=== PATIENT | female | born 1995 | race Caucasian/White ===

== ENCOUNTER 2020-10-23 21:30 | Emergency (ER) | payer OTHER, SELFPAY ==
--- NOTE | ~2020-10-23 | CT_ITS ---
EXAMINATION: CT abdomen pelvis w con EXAM DATE: 10/24/2020 00:12 INDICATION: Pelvic pain. TECHNIQUE: Spiral CT of the abdomen and pelvis was performed following intravenous injection of 100 m L Omnipaque 350. Axial, coronal and sagittal images were reviewed. The dose-length product (DLP) fo r this examination was 370.63 mGy-cm. The exposure was tailored according to patient size (auto mA e xposure control), and iterative reconstruction (ASIR) was used as additional dose reduction technique . There is no prior study for comparison. FINDINGS: The liver, spleen, adrenal glands and pancreas are unremarkable. Gallbladder is unremarkab le. No biliary obstruction. Portal and splenic veins are patent. Kidneys enhance symmetrically. T here is no hydronephrosis. The uterus is retroverted and morphologically normal. Ovaries are unrema rkable. The bladder is collapsed with Diaz catheter balloon anchor inside. There is no retroperiton eal or pelvic lymphadenopathy. The appendix is normal. The stomach and small bowel are unremarkable. There is expected amount of c olonic stool. No free intraperitoneal gas. The heart is normal in size. There are no pericardial or pleural effusions. The lung bases are unremarkable. Chronic right-sided L5 spondylolysis. No sp ondylolisthesis. There are no osteoblastic or osteolytic lesions identified. IMPRESSION: 1. No acute intra-abdominal findings. Reviewed, dictated and finalized at location B. [employer]ODUCTION ASSOCIATE
[2020-10-23 21:34] VITALS: BP 149/96; PULSE 119; RESP 18; TEMP 38.6; O2SAT 97
--- NOTE | 2020-10-23 22:19 | ED.GENADULT ---
HPI - General Adult General Chief complaint: Urogenital-Female <Dianne Cheek MD - Last Filed: 10/24/20 15:34> Stated complaint: urinary incontinence <Dianne Cheek MD - Last Filed: 10/24/20 15:34> Time Seen by Provider: 10/23/20 21:48 <Dianne Cheek MD - Last Filed: 10/24/20 15:34> Source: patient <Dianne Cheek MD - Last Filed: 10/24/20 15:34> History of Present Illness HPI narrative: Patient is a 24 y/o female complaining vaginal discomfort starting 2 days ago. She states that she used OTC Monistat, which did not help. She had a visit with [facility] yesterday and was prescribed Macrobid for possible UTI. She went to [place] urgent care today and was told she has vaginal redness, but probably not UTI. However, she was not able to urinate to have her urine tested. She states she now has difficulty with urination, pelvic pressure. It's been over 24 hours since she was last able to empty her bladder fully. <Dianne Cheek MD - Last Filed: 10/24/20 15:34> Related Data Home medications: Home Medications Medication Instructions Recorded Confirmed citalopram mg 10/23/20 <Dianne Cheek MD - Last Filed: 10/24/20 15:34> Allergies/adverse reactions: Allergies Allergy/AdvReac Type Severity Reaction Status Date / Time latex Allergy Mild Verified 07/03/19 14:53 nickel Allergy Mild rash Verified 07/03/19 14:53 <Dianne Cheek MD - Last Filed: 10/24/20 15:34> Review of Systems Constitutional: Constitutional: Denies chills, Denies fever(s), Denies headache(s) and Denies weakness <Dianne Cheek MD - Last Filed: 10/24/20 15:34> Eyes: Eyes: Denies blurry vision <Dianne Cheek MD - Last Filed: 10/24/20 15:34> ENT: Denies headache(s) and Denies neck pain <Dianne Cheek MD - Last Filed: 10/24/20 15:34> Cardiovascular: Cardiovascular: Denies chest pain and Denies dyspnea <Dianne Cheek MD - Last Filed: 10/24/20 15:34> Respiratory: Respiratory: Denies cough and Denies dyspnea <Dianne Cheek MD - Last Filed: 10/24/20 15:34> Gastrointestinal: Gastrointestinal: Denies abdominal pain, Denies diarrhea, Denies nausea and Denies vomiting <Dianne Cheek MD - Last Filed: 10/24/20 15:34> Genitourinary: Genitourinary: Denies hematuria, Reports genital pruritis, Reports dysuria and Reports pelvic pain <Dianne Cheek MD - Last Filed: 10/24/20 15:34> Musculoskeletal: Musculoskeletal: Denies back pain and Denies neck pain <Dianne Cheek MD - Last Filed: 10/24/20 15:34> Neurologic: Denies headache(s) and Denies weakness <Dianne Cheek MD - Last Filed: 10/24/20 15:34> Exam Const: General: no acute distress and well developed <Dianne Cheek MD - Last Filed: 10/24/20 15:34> Orientation/consciousness: oriented to person, oriented to place, oriented to time and patient oriented x3 <Dianne Cheek MD - Last Filed: 10/24/20 15:34> HENMT: Head: normocephalic <Dianne Cheek MD - Last Filed: 10/24/20 15:34> Ears: external ears normal <Dianne Cheek MD - Last Filed: 10/24/20 15:34> General nose exam: Normal external nose present <Dianne Cheek MD - Last Filed: 10/24/20 15:34> Eyes: General: appearance normal, both eyes and all related structures <Dianne Cheek MD - Last Filed: 10/24/20 15:34> Conjunctivae: conjunctivae normal <Dianne Cheek MD - Last Filed: 10/24/20 15:34> Neck: Neck: normal visual inspection and full ROM <Dianne Cheek MD - Last Filed: 10/24/20 15:34> Chest: Chest palpation & inspection: normal inspection of the chest and no tenderness <Dianne Cheek MD - Last Filed: 10/24/20 15:34> Resp: Effort & Inspection: normal respiratory effort <Dianne Cheek MD - Last Filed: 10/24/20 15:34> Auscultation: clear to auscultation bilaterally <Dianne Cheek MD - Last Filed: 10/24/20 15:34> Cardio: Rate: tachycardic <Dianne Cheek MD - Last Filed: 10/24/20 15:34> Rhythm: regular rhythm <Dianne Cheek MD - Last Filed: 10/24/20 15:34> GI: GI Palp: No a
[2020-10-23 22:33] LABS: Basophils Percent Auto 0.4 % (0.2-1.2); Eosinophils Percent Auto 0.2 % (0-4.4); Hematocrit 40.5 % (37.0-47.0); Hemoglobin 13.5 g/dL (12.0-15.0); Immature Granulocyte Absolute 0.01 K/mm3 (0.00-0.031); Immature Granulocyte Percent A 0.2 % (0-0.5); Lymphocytes Absolute Auto 1.02 K/mm3 (0.9-3.2); Lymphocytes Percent Auto 19.6 % (18.3-44.2); Mean Corpuscular HGB Conc 33.3 g/dl (32-36); Mean Corpuscular Hemoglobin 28.4 pg (26-34); Mean Corpuscular Volume 85.3 fl (80-100); Mean Platelet Volume 10.6 fl (7.4-10.4); Monocytes Absolute Auto 0.5 K/mm3 (0.1-0.6); Neutrophils Absolute Auto 3.7 K/mm3 (1.3-6.7); Neutrophils Percent Auto 70.6 % (45.5-73.1); Platelet Count Result 268 k/mm3 (150-375); Red Blood Count 4.75 M/mm3 (4.2-5.4); Red Cell Distribution Width 12.6 % (11.5-14.5); White Blood Count 5.2 K/mm3 (4.5-10.0)
[2020-10-23] MEDS: ACETAMINOPHEN 325 MG TABLET 650 MG PO (22:39)
[2020-10-23 22:41] VITALS: BP 116/86; PULSE 119; RESP 16; O2SAT 98
[2020-10-23 22:44] LABS: Alanine Aminotransferase 19 U/L (4-35); Albumin Level 4.1 g/dL (3.5-5.1); Alkaline Phosphatase 92 U/L (38-126); Anion Gap 9 mmol/L (8-16); Aspartate Amino Transferase 21 U/L (14-36); Bilirubin,Total 0.4 mg/dL (0.2-1.3); Blood Urea Nitrogen 9 mg/dL (7-17); Calcium 9.1 mg/dL (8.4-10.2); Carbon Dioxide 26 mmol/L (22-30); Chloride 104 mmol/L (98-107); Estimated CRCL calculation 134 ml/min; Estimated Glomerular Filt Rate > 60; Glucose 112 mg/dL (65-105); Potassium 3.2 mmol/L (3.4-5.0); Sodium 139 mmol/L (137-145)
[2020-10-23 22:45] LABS: Lactic Acid Reflex 0.9 mmol/L (0.7-2.1)
[2020-10-23 22:48] LABS: Add Urine Microscopic? YES; Appearance Urine Clear (Clear); Bilirubin Urine Negative (Negative); Blood Urine Negative (Negative); Color Urine Amber (Yellow); Glucose Urine UA Negative (Negative); Ketones Urine Trace mg/dL (Negative); Leukocyte Esterase Ur Negative LEU/UL (Negative); Mucus Urine Rare /lpf; Nitrate Urine Positive (Negative); Protein Urine 1+ mg/dL (Negative); Specific Grav Ur 1.026 (1.001-1.035); Squamous Epithelial Cell Urine Rare /hpf (Few); WBC Urine 0-3 /hpf
[2020-10-23] MEDS: POTASSIUM CHLORIDE 20 MEQ TABLET PO (23:08)
[2020-10-23 23:38] VITALS: BP 117/79; PULSE 101; RESP 16; O2SAT 97
[2020-10-24 00:47] VITALS: BP 108/71; PULSE 96; RESP 16; O2SAT 96
[2020-10-24] MEDS: CITALOPRAM HYDROBROMIDE 20 MG TABLET 40 MG BY MOUTH (00:48)
[2020-10-24 01:58] VITALS: BP 108/75; PULSE 86; RESP 16; O2SAT 96
== END 2020-10-24 02:14 | disposition home or self-care (01) ==
PROVIDERS: Emergency Provider Emergency Medicine
DX: R33.9 Retention of urine, unspecified (principal)
CPT/HCPCS: 36415; 74177; 80053; 81001; 81025; 83605; 85025; 87040; 99284; A9270; Q9967

== ENCOUNTER 2021-11-02 16:17 | Inpatient (IN) | payer OTHER, BC, SELFPAY ==
[2021-11-02] VITALS (47 sets, daily range): BP systolic 91–110; BP diastolic 53–68; PULSE 44–85; RESP 18–20; TEMP 36.5–36.7; O2SAT 97–100; BMI 34.4
--- NOTE | ~2021-11-02 | US_ITS ---
EXAMINATION: US OB BPP wo non-stress DATE: 11/02/2021 17:30 INDICATION: Biophysical profile score of 4/8 in the office, third trimester TECHNIQUE: Real-time pelvic ultrasound was performed. The interpreting radiologist was not present fo r the study. COMPARISON: None. FINDINGS: There is a single living fetus in vertex presentation. The placenta is posterior. heart rate is 152 beats per minute (bpm). Biophysical profile performed by the technologist: breathing (30 sec sustained breathing in 30 minutes): 0 out of 2 movement (3 gross body movements in 30 minutes): 2 out of 2 tone (one episode of ylxbzrc-[id number]-crvizjl limb movement): 2 out of 2 Amniotic fluid pocket (2 cm): 2 out of 2 Total score: 6 out of 8 IMPRESSION: 1. Single living fetus in vertex presentation. 2. Biophysical profile 6 out of 8. Reviewed, dictated and finalized at location F. [employer] BL[employer]
[2021-11-02] MEDS: LACTATED RINGERS 1,000 ML 125 ML IV CONT ×3 (17:30→19:00)
--- NOTE | 2021-11-02 17:50 | LDADM ---
This patient, Quita Parra, was admitted to OB [facility] on 11/02/21 at 1617 for testing and decision made to perform urgent C/S. Plans for surgery/ and pain management were discussed with patient. Patient/family oriented to hospital policies and general routines including ID bracelet, bed and alarms, visiting hours, pain management, procedures, bathroom and other care routines, personal items, smoking policy, room service/diet and guest tray routines, infant security routines, and visiting hours. Patient/Family are encouraged to report perceived risks to care and to ask questions if they do not understand what they are told or what they should do. See OBIX for further documentation.
--- NOTE | 2021-11-02 17:50 | PM.IMHP ---
H&P: HPI History of Present Illness Date/Time: 11/02/21 17:50 25 y/o @ 34w3d send over from the office for a bpp of 48 with significantly decreased movement. Chief Complaint: Non reassuring status Review of Systems Review of Systems: All systems reviewed & are unremarkable except as noted in HPI and below Constitutional: Constitutional: Reports as per HPI and Reports no additional constitutional complaints Eyes: Eyes: Reports as per HPI ENT: Reports system reviewed and no additional complaints, except as documented Cardiovascular: Cardiovascular: Reports as per HPI Respiratory: Respiratory: Reports as per HPI Gastrointestinal: Gastrointestinal: Reports as per HPI Genitourinary: Genitourinary: Reports no additional female genitourinary complaints Musculoskeletal: Musculoskeletal: Reports no additional musculoskeletal complaints Integumentary/Breasts: Skin/Breast: Reports system reviewed and no additional complaints, except as docu Neurologic: Reports system reviewed and no additional complaints, except as documented Psychiatric: Psychiatric: Reports no additional psychiatric complaints Endocrine: Endocrine: Reports no additional endocrine complaints Hematologic/Lymphatic: Hematologic/Lymphatic: Reports no additional hematologic/lymphatic complaints Allergic/Immunologic: Allergic/Immunologic: Reports no additional allergic/immunologic complaints Meds Home Medications and Allergies Home Medications Medication Instructions Recorded Confirmed Type citalopram mg 10/23/20 History Allergies Allergy/AdvReac Type Severity Reaction Status Date / Time latex Allergy Mild Verified 07/03/19 14:53 nickel Allergy Mild rash Verified 07/03/19 14:53 Exam Const: General: cooperative and healthy appearing Orientation/consciousness: oriented to person, oriented to place, oriented to time and patient oriented x3 Limitations: no limitations HENMT: Head: normal to inspection Ears: hearing grossly normal bilaterally General nose exam: Normal external nose present Face and sinus: normal facial exam Mouth: Yes Normal oral and palatal mucosa present Teeth and gingiva: dentition normal Throat: posterior oropharynx normal Eyes: General: appearance normal, both eyes and all related structures Neck: Neck: normal visual inspection Thyroid: thyroid normal Chest: Chest palpation & inspection: normal inspection of the chest Resp: Effort & Inspection: normal respiratory effort Auscultation: clear to auscultation bilaterally Cardio: Rate: regular rate Rhythm: regular rhythm GI: Inspection: normal to inspection : General: Yes bimanual renal exam normal bilaterally Skin: General skin exam: normal color and no rashes or lesions noted Neuro: General: oriented to person, oriented to place, oriented to time and patient oriented x3 Extrem: General: normal to inspection Psych: Mental Status: mental status grossly normal Assessment and Plan Assessment and plan (1) Non-reassuring status: Status: Acute Additional Plan Bedside BPP and NST. Dr Lezama aware and agrees with plan.
--- NOTE | 2021-11-02 18:11 | WPDANESEPPF ---
Anes - Initial Pre Proc Eval Date/Time: 11/02/21 18:11 Surgeon: Pacheco Desir MD Pre Op Diagnosis: surveillance Patient Data Age: 25 Gender: F Height: Weight: Last Vital Signs Pulse 85 11/02/21 18:10 BP 110/61 11/02/21 18:10 Allergies Allergy/AdvReac Type Severity Reaction Status Date / Time latex Allergy Mild Verified 07/03/19 14:53 nickel Allergy Mild rash Verified 07/03/19 14:53 Home Medications Medication Instructions Recorded Confirmed Type PNV [id number] 3 tablet PO DAILY 11/02/21 11/02/21 History [Vitafol Gummies] citalopram 40 mg PO DAILY 11/02/21 11/02/21 History Laboratory Tests 11/02/21 11/02/21 17:57 17:57 WBC Pending RBC Pending Hgb Pending Hct Pending MCV Pending MCH Pending MCHC Pending RDW Pending Plt Count Pending MPV Pending Immature Gran % (Auto) Pending Neut % (Auto) Pending Lymph % (Auto) Pending [place] % (Auto) Pending Eos % (Auto) Pending Baso % (Auto) Pending Lymph # (Auto) Pending [place] # (Auto) Pending Eos # (Auto) Pending Baso # (Auto) Pending Abs Immat Gran (auto) Pending Absolute Neuts (auto) Pending Absolute Nucleated RBC Pending Nucleated RBC % Pending RPR Pending Patient hx anesthesia problems: none Family hx anesthesia problems: none Results Review: All pre-operative results and documents have been reviewed as part of the pre-operative evaluation. [facility] Past Medical History Medical History (Updated 11/02/21 @ 18:11 by Rehan Aaron MD) (normal spontaneous vaginal delivery) x 2 Obesity Anes - Eval Final PreProcedure Day of Procedure 11/02/21 18:11 Patient weight: obese Heart: regular rate and rhythm Lungs: clear to auscultation Airway: Mallampati scale class II Neurological: alert and oriented Last oral intake: 2 hours (sandwhich less than 2 hours ago) ASA classification: II Emergent: yes Anesthetic plan: proceed Anesthesia type and monitoring: regional spinal and standard monitoring Results Review: All pre-operative results and documents have been reviewed as part of the pre-operative evaluation. Informed Consent: The patient's anesthetic plan and its attendant risks and benefits were discussed with the patient/family/POA. Questions were solicited and answers provided to the satisfaction of the patient/family/POA.
[2021-11-02 18:12] LABS: Basophils Percent Auto 0.2 % (0.2-1.2); Eosinophils Percent Auto 0.2 % (0-4.4); Hematocrit 33.9 % (37.0-47.0); Hemoglobin 10.9 g/dL (12.0-15.0); Immature Granulocyte Absolute 0.08 K/mm3 (0.00-0.031); Immature Granulocyte Percent A 1.2 % (0-0.5); Lymphocytes Absolute Auto 1.28 K/mm3 (0.9-3.2); Lymphocytes Percent Auto 19.8 % (18.3-44.2); Mean Corpuscular HGB Conc 32.2 g/dl (32-36); Mean Corpuscular Hemoglobin 25.5 pg (26-34); Mean Corpuscular Volume 79.4 fl (80-100); Mean Platelet Volume 10.9 fl (7.4-10.4); Monocytes Absolute Auto 0.2 K/mm3 (0.1-0.6); Monocytes Percent Auto 3.2 % (2.6-8.5); Neutrophils Absolute Auto 4.9 K/mm3 (1.3-6.7); Neutrophils Percent Auto 75.4 % (45.5-73.1); Platelet Count Result 176 k/mm3 (150-375); Red Blood Count 4.27 M/mm3 (4.2-5.4); Red Cell Distribution Width 13.6 % (11.5-14.5); White Blood Count 6.5 K/mm3 (4.5-10.0)
--- NOTE | 2021-11-02 18:13 | WPDHPUPDATE1 ---
History and Physical Update Update Date/Time: 11/02/21 18:13 BPP 6/10 with non reactive nst. Minimal to absent variability and [address]. Dr Lezama on her way in for . Primary for nrfht. History and Physical has been reviewed, including an updated exam of the patient. There are NO changes in the patient's condition. Risks, benefits, and alternatives have been discussed and questions answered. Patient agrees to proceed with procedure.
--- NOTE | 2021-11-02 18:16 | PM.IMHP ---
H&P: HPI History of Present Illness Date/Time: 11/02/21 18:16 25 y/o 2 34w3d here from office for bpp of 4/8 and decreased movement. Review of Systems Review of Systems: All systems reviewed & are unremarkable except as noted in HPI and below Constitutional: Constitutional: Reports as per HPI and Reports no additional constitutional complaints Eyes: Eyes: Reports as per HPI ENT: Reports system reviewed and no additional complaints, except as documented Cardiovascular: Cardiovascular: Reports as per HPI Respiratory: Respiratory: Reports as per HPI Gastrointestinal: Gastrointestinal: Reports as per HPI Genitourinary: Genitourinary: Reports no additional female genitourinary complaints Musculoskeletal: Musculoskeletal: Reports no additional musculoskeletal complaints Integumentary/Breasts: Skin/Breast: Reports system reviewed and no additional complaints, except as docu Neurologic: Reports system reviewed and no additional complaints, except as documented Psychiatric: Psychiatric: Reports no additional psychiatric complaints Endocrine: Endocrine: Reports no additional endocrine complaints Hematologic/Lymphatic: Hematologic/Lymphatic: Reports no additional hematologic/lymphatic complaints Allergic/Immunologic: Allergic/Immunologic: Reports no additional allergic/immunologic complaints [facility] Past Medical History Medical History (Updated 11/02/21 @ 18:17 by Shana Jimenez CNM) (normal spontaneous vaginal delivery) x 2 Obesity Family History Family History (Updated 11/02/21 @ 18:14 by Karen Hedrick RN) Other No pertinent family history Meds Home Medications and Allergies Home Medications Medication Instructions Recorded Confirmed Type PNV [id number] 3 tablet PO DAILY 11/02/21 11/02/21 History [Vitafol Gummies] citalopram 40 mg PO DAILY 11/02/21 11/02/21 History Allergies Allergy/AdvReac Type Severity Reaction Status Date / Time latex Allergy Mild Verified 07/03/19 14:53 nickel Allergy Mild rash Verified 07/03/19 14:53 Vital Signs Vital Signs - 24 hr 11/02/21 18:00 11/02/21 18:01 11/02/21 18:10 Pulse Rate 79 85 85 Blood Pressure 106/62 110/61 110/61 11/02/21 18:15 Pulse Rate 75 Blood Pressure 106/67 Exam Const: General: cooperative and healthy appearing Orientation/consciousness: oriented to person, oriented to place, oriented to time and patient oriented x3 Limitations: no limitations HENMT: Head: normal to inspection Ears: hearing grossly normal bilaterally General nose exam: Normal external nose present Face and sinus: normal facial exam Mouth: Yes Normal oral and palatal mucosa present Teeth and gingiva: dentition normal Throat: posterior oropharynx normal Eyes: General: appearance normal, both eyes and all related structures Neck: Neck: normal visual inspection Thyroid: thyroid normal Chest: Chest palpation & inspection: normal inspection of the chest Resp: Effort & Inspection: normal respiratory effort Auscultation: clear to auscultation bilaterally Cardio: Rate: regular rate Rhythm: regular rhythm GI: Inspection: normal to inspection : General: Yes bimanual renal exam normal bilaterally Skin: General skin exam: normal color and no rashes or lesions noted Neuro: General: oriented to person, oriented to place, oriented to time and patient oriented x3 Extrem: General: normal to inspection Psych: Mental Status: mental status grossly normal H&P: Results Labs Labs: Short CBC 11/02/21 Range/Units 17:57 WBC 6.5 (4.5-10.0) K/mm3 Hgb 10.9 L (12.0-15.0) g/dL Hct 33.9 L (37.0-47.0) % Plt Count 176 (150-375) k/mm3 Assessment and Plan Assessment and plan (1) Non-reassuring status: Status: Acute
[2021-11-02] MEDS: ceFAZolin 2 GM/D5W 50 ML 2 GM/50 ML BAG IVPB (18:21)
--- NOTE | 2021-11-02 19:20 | P.HPUP_ITS ---
History and Physical Update Update Date/Time: 11/02/21 19:20 Late Entry: Pt admitted from office with 4/8 BPP and decreased FM for a week. Repeat BPP here was 6/8 but FHT was category 2 with minimal to absent variability and late decels, so decision was made to proceed with section. Pt was consented, discussed risks, benefits, and questions answered. see operative note. Placenta had copious calcifications and felt almost brittle. Seemed like a 41- 42 week placenta. Discussed these findings with Quita and her .
--- NOTE | 2021-11-02 19:27 | P.PCNOB_ITS ---
OB - Delivery Note Procedure Delivery date: 11/02/21 Procedure: Primary low transverse section events: Placental Insufficiency Intrapartal events: Intolerance Route of delivery: Specimen: Yes (placenta) Quantitative Blood Loss (ml): 430 Anesthesia type: Spinal Disposition: floor Complications: none Narrative: The patient was taken to the OR and received spinal anesthesia. She was placed in dorsal supine position with left lateral tilt. SCDs and millan were placed. She was prepped and draped in the normal sterile fashion. A Pfannensteil skin incision was made and carried through to the underlying layer of fascia. The fascia was incised in the midline and then extended laterally using Peres scissors. The muscles were in the midline and the peritoneum was entered bluntly. The peritoneal incision was extended inferiorly and superiorly with care to avoid the bladder. The bladder blade was then inserted, the vesicouterine peritoneum was grasped, incised with Metzenbaum scissors, and a bladder flap created. The bladder blade was reinserted. A low transverse uterine incision was made with a scalpel and extended bluntly. AROM was performed and fluid was noted to be clear. The head was delivered, followed by the remainder of the baby. The baby's oropharynx was suctioned. After 30 seconds, the cord was clamped and cut and the was handed off. Cord blood was obtained and the placenta was then removed manually. The uterus was exteriorized. A moist lap sponge was used to curette the endometrium. The uterine incision was then closed with one layer of 0-Vicryl in a running, locking fashion. Good hemostasis was noted. The posterior cul de sac was irrigated with normal saline and cleared of all clot and debris. The uterus was returned to the abdomen. Both lateral gutters were then irrigated. The rectus muscles were inspected and found to be hemostatic. The fascia was reapproximated using 0-Vicryl in running fashion. The subcutaneous tissue was irrigated with normal saline and made hemostatic with Bovie electrocautery. The subcutaneous tissue was reapproximated with a layer of running 2-0 plain gut. The skin was then closed with 4-0 Vicryl in a subcuticular fashion. Steri strips and a bandage were applied. The uterus was evacuated. The patient tolerated the procedure very well. All counts were correct. She was taken to the recovery room in good condition. [place] Baby Date of : 11/02/21 Time of : 18:37 Weeks of gestation at delivery: 34 Infant gender: Female presentation: vertex Placenta delivery description: Manual Removal cord vessel description: 3 Vessels, Nuchal Cord and Clamped/Cut Narrative: weight and apgars pending per peds
[2021-11-02 20:09] LABS: Amphetamine Screen Urine Negative (Negative); Barbiturate Screen Urine Negative (Negative); Benzodiazepines Screen Urine Negative (Negative); Cannabinoid Screen Urine Negative (Negative); Cocaine Screen Urine Negative (Negative); Methadone Screen Urine Negative (Negative); Opiate Screen Urine Negative (Negative); Phencyclidine Screen Urine Negative (Negative)
[2021-11-02] MEDS: OXYTOCIN 30 UNITS/NS 500 ML 30 UNITS/500 ML BAG 125 UNITS IV CONT (21:01)
[2021-11-02] MEDS: KETOROLAC 30 MG/ML VIAL (*BKC) IV PUSH (21:10)
[2021-11-02 21:40] LABS: SARS-CoV-2 IgG Reactive (NonReactive)
--- NOTE | 2021-11-02 22:03 | ADMGEN ---
This patient, Quita Parra, was admitted to OB 2nd Floor Room 286-00. Patient/family oriented to hospital policies and general routines including ID bracelet, bed and alarms, visiting hours, pain management, procedures, bathroom and other care routines, personal items, smoking policy, room service/diet, and visiting hours. Information on how to activate the Rapid Response Team has been discussed. Patient/Family are encouraged to report perceived risks to care and to ask questions if they do not understand what they are told or what they should do.
[2021-11-03] VITALS (7 sets, daily range): BP systolic 91–116; BP diastolic 49–72; PULSE 62–86; RESP 16–18; TEMP 36.4–36.7; O2SAT 98–100
--- NOTE | 2021-11-03 00:10 | PC.NURSE ---
Transferred to 1st floor Nursery per wheelchair to see . Spouse present.
--- NOTE | 2021-11-03 01:10 | PC.NURSE ---
Returned to room per wheelchair from 1st floor Nursery. Transferred to bed with standby assist for safety. Gait steady.
[2021-11-03] MEDS: CITALOPRAM HYDROBROMIDE 20 MG TABLET 40 MG PO (01:22)
[2021-11-03] MEDS: HYDROcodone/acetaminophen (*CRX) 10-325 MG TABLET 1 TAB PO ×3 (01:22→22:32)
[2021-11-03] MEDS: SIMETHICONE 80 MG TAB.CHEW PO ×4 (01:23→22:32)
[2021-11-03] MEDS: IBUPROFEN 600 MG TABLET PO ×3 (01:23→17:31)
--- NOTE | 2021-11-03 01:25 | PC.NURSE ---
Patient reported taking Celexa 20mg po qhs. Home medication list updated.
--- NOTE | 2021-11-03 04:20 | PM.OBPNVD ---
OB - PN: Subj Subjective Date/time seen: 11/03/21 04:20 Patient comments: no complaints, pain well controlled, tolerating diet and flatus present baby status: doing well OB - PN: Obj Data Labs CBC & Chem 7: 11/02/21 17:57 Labs: Laboratory Results - last 24 hr 11/02/21 11/02/21 11/02/21 17:57 17:57 19:31 WBC 6.5 RBC 4.27 Hgb 10.9 L Hct 33.9 L MCV 79.4 L MCH 25.5 L MCHC 32.2 RDW 13.6 Plt Count 176 MPV 10.9 H Immature Gran % (Auto) 1.2 H Neut % (Auto) 75.4 H Lymph % (Auto) 19.8 Gaines % (Auto) 3.2 Eos % (Auto) 0.2 Baso % (Auto) 0.2 Lymph # (Auto) 1.28 Gaines # (Auto) 0.2 Eos # (Auto) 0.0 Baso # (Auto) 0.0 Abs Immat Gran (auto) 0.08 H Absolute Neuts (auto) 4.9 Absolute Nucleated RBC 0.0 Nucleated RBC % 0.0 Urine Opiates Screen Negative Urine Methadone Screen Negative Ur Barbiturates Screen Negative Ur Phencyclidine Scrn Negative Ur Amphetamine Screen Negative U Benzodiazepines Scrn Negative Urine Cocaine Screen Negative U Cannabinoids Screen Negative SARS-CoV-2 IgG Ab [id number] (ECLIA) Blood Type A Positive Antibody Screen Negative 11/02/21 11/02/21 19:43 19:43 WBC RBC Hgb Hct MCV MCH MCHC RDW Plt Count MPV Immature Gran % (Auto) Neut % (Auto) Lymph % (Auto) Gaines % (Auto) Eos % (Auto) Baso % (Auto) Lymph # (Auto) Gaines # (Auto) Eos # (Auto) Baso # (Auto) Abs Immat Gran (auto) Absolute Neuts (auto) Absolute Nucleated RBC Nucleated RBC % Urine Opiates Screen Urine Methadone Screen Ur Barbiturates Screen Ur Phencyclidine Scrn Ur Amphetamine Screen U Benzodiazepines Scrn Urine Cocaine Screen U Cannabinoids Screen SARS-CoV-2 IgG Ab Reactive A [id number] (ECLIA) Reactive A Blood Type Antibody Screen Imaging Radiologist's impression: Impressions Obstetrics US/Biophysical Profile 11/02/21 17:47 IMPRESSION: 1. Single living fetus in vertex presentation. 2. Biophysical profile 6 out of 8. OB - PN A/P Plan day: 1 Plan: routine care Time Spent With Patient Time: Total time spent is greater than 50% in coordination of care (as documented) at patient's floor/unit and/or counseling patient: Time with patient: less than 15 minutes Review of Systems Review of Systems: All systems reviewed & are unremarkable except as noted in HPI and below Exam Narrative: Fundus firm. Vaginal flow controlled. Incision dry and intact. Negative homans. No redness, warmth, or pain of lower ext. Const: General: comfortable Chest: Breast/axilla inspection: normal inspection of the breasts Resp: Effort & Inspection: normal respiratory effort Auscultation: clear to auscultation bilaterally Cardio: Rate: regular rate GI: GI Palp: Yes Soft to palpation Psych: Appearance: grossly normal Affect: normal affect Attitude: cooperative Thought content: Yes Normal thought content present Judgement: Good judgement present (Psych)
[2021-11-03 05:27] LABS: Basophils Percent Auto 0.1 % (0.2-1.2); Eosinophils Percent Auto 0.3 % (0-4.4); Hematocrit 29.6 % (37.0-47.0); Hemoglobin 9.3 g/dL (12.0-15.0); Immature Granulocyte Absolute 0.07 K/mm3 (0.00-0.031); Lymphocytes Absolute Auto 1.42 K/mm3 (0.9-3.2); Lymphocytes Percent Auto 20.7 % (18.3-44.2); Mean Corpuscular HGB Conc 31.4 g/dl (32-36); Mean Corpuscular Hemoglobin 25.5 pg (26-34); Mean Corpuscular Volume 81.1 fl (80-100); Mean Platelet Volume 10.8 fl (7.4-10.4); Monocytes Absolute Auto 0.3 K/mm3 (0.1-0.6); Monocytes Percent Auto 4.2 % (2.6-8.5); Neutrophils Absolute Auto 5.1 K/mm3 (1.3-6.7); Neutrophils Percent Auto 73.7 % (45.5-73.1); Platelet Count Result 149 k/mm3 (150-375); Red Blood Count 3.65 M/mm3 (4.2-5.4); Red Cell Distribution Width 13.6 % (11.5-14.5); White Blood Count 6.9 K/mm3 (4.5-10.0)
--- NOTE | 2021-11-03 06:54 | WPDANLDPN2 ---
Anes-Prog Note L&D Date/Time: 11/03/21 06:54 Comfortable throughout: section Neuraxial method: epidural Epidural/Spinal procedure site: clean & non-tender Neuro status: Neuro function grossly intact. Cardiovascular status: normal Respiratory status: normal Airway patency: baseline Mental status: baseline Post-Op hydration status: normal Vital Signs: Last Vital Signs Temp 36.4 C 11/03/21 04:00 Pulse 62 11/03/21 04:00 Resp 18 11/03/21 04:00 BP 101/65 11/03/21 04:00 Pulse Ox 98 11/02/21 21:32 Pain score (VAS): 2 I/O: Intake & Output 11/02/21 11/02/21 11/03/21 15:59 23:59 07:59 Intake Total 1150 2000 Output Total 805 600 Balance 345 1400 Post-procedural complaints: none Patient feedback: Patient satisfied with anesthetic care.
--- NOTE | 2021-11-03 06:54 | WPDANLDNPN2 ---
Anes-Prog Note L&D-Neuraxial Date/Time: 11/03/21 06:54 Neuraxial medications: epidural PF morphine Opiod-related complaints: none Patient feedback: Patient satisfied with post-operative pain management.
[2021-11-03] MEDS: HYDROcodone/acetaminophen (*CRX) 5-325 MG TABLET 1 TAB PO ×2 (09:34→17:32)
[2021-11-03] MEDS: MULTIVIT/MIN/PREN/FOL AC/IRON TABLET 1 TAB PO (09:35)
[2021-11-03] MEDS: POLYSACCHARIDE IRON COMPLEX 150 MG CAPSULE PO ×2 (09:35→17:31)
[2021-11-03] MEDS: DOCUSATE SODIUM 100 MG CAPSULE PO ×2 (09:35→17:31)
[2021-11-03] MEDS: CITALOPRAM HYDROBROMIDE 20 MG TABLET PO (22:32)
[2021-11-04] MEDS: HYDROcodone/acetaminophen (*CRX) 10-325 MG TABLET 1 TAB PO ×2 (05:11→09:46)
[2021-11-04] MEDS: IBUPROFEN 600 MG TABLET PO ×3 (05:13→20:57)
--- NOTE | 2021-11-04 09:42 | PM.OBPNVD ---
OB - PN: Subj Subjective Date/time seen: 11/04/21 09:42 Patient comments: no complaints, pain well controlled, tolerating diet and flatus present baby status: doing well OB - PN: Obj Data Labs CBC & Chem 7: 11/03/21 05:03 OB - PN A/P Plan day: 2 Plan: routine care Time Spent With Patient Time: Total time spent is greater than 50% in coordination of care (as documented) at patient's floor/unit and/or counseling patient: Time with patient: less than 15 minutes Review of Systems Review of Systems: All systems reviewed & are unremarkable except as noted in HPI and below Exam Narrative: Fundus firm. Vaginal flow controlled. Incision dry and intact. Negative homans. No redness, warmth, or pain of lower ext. Const: General: comfortable Chest: Breast/axilla inspection: normal inspection of the breasts Resp: Effort & Inspection: normal respiratory effort Auscultation: clear to auscultation bilaterally Cardio: Rate: regular rate GI: GI Palp: Yes Soft to palpation Psych: Appearance: grossly normal Affect: normal affect Attitude: cooperative Thought content: Yes Normal thought content present Judgement: Good judgement present (Psych)
[2021-11-04 09:45] VITALS: BP 103/60; PULSE 68; PULSE 80; RESP 16; RESP 18; TEMP 36.2; O2SAT 100; O2SAT 99
[2021-11-04] MEDS: DOCUSATE SODIUM 100 MG CAPSULE PO ×2 (09:45→15:59)
[2021-11-04] MEDS: MULTIVIT/MIN/PREN/FOL AC/IRON TABLET 1 TAB PO (09:45)
[2021-11-04] MEDS: SIMETHICONE 80 MG TAB.CHEW PO ×3 (09:45→20:57)
[2021-11-04] MEDS: POLYSACCHARIDE IRON COMPLEX 150 MG CAPSULE PO ×2 (09:46→15:59)
[2021-11-04] MEDS: HYDROcodone/acetaminophen (*CRX) 5-325 MG TABLET 1 TAB PO ×2 (14:27→20:56)
[2021-11-04 20:20] VITALS: BP 101/67; PULSE 82; RESP 16; TEMP 36.3; O2SAT 100
[2021-11-04] MEDS: CITALOPRAM HYDROBROMIDE 20 MG TABLET PO (20:56)
[2021-11-05] MEDS: SIMETHICONE 80 MG TAB.CHEW PO (05:18)
[2021-11-05] MEDS: HYDROcodone/acetaminophen (*CRX) 5-325 MG TABLET 1 TAB PO ×2 (05:18→12:00)
[2021-11-05] MEDS: IBUPROFEN 600 MG TABLET PO ×2 (05:19→12:01)
[2021-11-05 07:40] VITALS: BP 110/78; PULSE 56; RESP 16; TEMP 36.2
--- NOTE | 2021-11-05 10:47 | PM.OBPNVD ---
OB - PN: Subj Subjective Date/time seen: 11/05/21 10:47 Patient comments: no complaints, pain well controlled, tolerating diet and flatus present baby status: doing well OB - PN: Obj Data Labs CBC & Chem 7: 11/03/21 05:03 OB - PN A/P Plan day: 3 Plan: routine care and discharge home (Follow up in 1 week) Time Spent With Patient Time: Total time spent is greater than 50% in coordination of care (as documented) at patient's floor/unit and/or counseling patient: Time with patient: less than 15 minutes Review of Systems Review of Systems: All systems reviewed & are unremarkable except as noted in HPI and below Exam Narrative: Fundus firm. Vaginal flow controlled. Incision dry and intact. Negative homans. No redness, warmth, or pain of lower ext. Const: General: comfortable Chest: Breast/axilla inspection: normal inspection of the breasts Resp: Effort & Inspection: normal respiratory effort Auscultation: clear to auscultation bilaterally Cardio: Rate: regular rate GI: GI Palp: Yes Soft to palpation Psych: Appearance: grossly normal Affect: normal affect Attitude: cooperative Thought content: Yes Normal thought content present Judgement: Good judgement present (Psych)
[2021-11-05] MEDS: DOCUSATE SODIUM 100 MG CAPSULE PO (12:00)
[2021-11-05] MEDS: POLYSACCHARIDE IRON COMPLEX 150 MG CAPSULE PO (12:00)
[2021-11-05] MEDS: MULTIVIT/MIN/PREN/FOL AC/IRON TABLET 1 TAB PO (12:00)
[2021-11-06 09:28] LABS: Rapid Plasma Reagin Non-Reactive (NonReactive)
[2021-11-08 11:08] VITALS: BP 116/64; PULSE 53; RESP 16; TEMP 36.7; O2SAT 100
--- NOTE | 2021-11-28 19:26 | PM.OBDSVD ---
DS: Admitting Diagnosis Discharge Date 11/05/21 Admitting Diagnosis Non reassuring heart tones OB - DS: Summary OB Procedures : None OB Procedures Intrapartum: OB Procedures: : None Peripartum Data Procedures: Procedures Operation Date: 11/02/21 18:30 Actual Procedure Side Surgeon p Section Yani Lezama MD Time Spent with Patient Time attestation: Total time spent providing and/or coordinating discharge services: DS: Data Data Completed and Pending Completed studies during hospitalization: Pending at discharge 11/02/21 19:56 Surgical [PTH] Routine Discharge Plan Discharge Attending physician on discharge: Yani Lezama Consulting providers: Shana Jimenez ; Jamison Preston ; Rehan Aaron Discharging Clinician: Shana Jimenez Patient Disposition: Home, Self-Care Activity: may drive after 2 weeks and pelvic rest Diet: as tolerated Wound Care Instructions: follow printed instructions Discharge Instructions: Education: Mom and Baby Guide and Preeclampsia Handout Given to: Mother Follow-Up: Call your delivering provider's office for an appointment to be seen in: 1 Week Mom and baby should come to the [facility] for the follow-up appointment. Appointment Date/Time: November 08, 2021 at 11:00 am What to expect at your follow-up visit: Physical Assessment Call [phone] if you are unable to keep your appointment time. BREAST CARE: * Wear a snug supportive bra. * For engorgement discomfort: Bottle Feeding: * May apply ice packs ABDOMINAL INCISION: (if applicable) * Allow incision to air dry * Do NOT use lotions for powders on your incision * When showering, allow soap and water to run over the incision, but do not wash incision EPISIOTOMY/PERINEAL CARE: * Until bleeding stops, use your luis bottle after urinating * Change your pad frequently throughout the day * No tub baths until seen by your physician - You may shower ACTIVITY: * Rest as much as possible. * Do not exercise or lift anything heavier than your baby (such as laundry or other children.) * Avoid stairs or driving as much as possible. * Do not put anything into the vagina. No douching, tampons, or sexual activity until seen by physician. NOTIFY PHYSICIAN IF YOU HAVE ANY QUESTIONS OR IF ANY OF THE FOLLOWING SYMPTOMS OCCUR: * If your incision becomes red, swollen, or more painful than what you have experienced in the hospital. * If your vaginal bleeding becomes foul smelling. * If your vaginal bleeding becomes more heavy than a period or if your bleeding changes from pink to bright red. However, you may pass an occasional walnut-sized clot once or twice for the first week . * If you experience a sharp, shooting pain in you calves. * If you discover a hard, reddened area on your breast or if you experience flu-like symptoms. DIET: * Eat regular, well-balanced meals. * Drink plenty of fluids daily. Stand Alone Forms: General Discharge Information Follow-up/Referrals: Yani Lezama MD [Physician] - Discharge Medications: New ibuprofen 600 mg Tablet 600 mg PO Q6H PRN (Reason: Cramping) Qty: 20 RF: 0 hydrocodone-acetaminophen 5-325 mg tablet 1 tablet PO Q4H PRN (Reason: pain) Qty: 20 RF: 0 Continued citalopram 40 mg tablet 20 mg PO HS RF: 0 Vitafol Gummies 3.33 mg iron- 0.33 mg tablet,chewable 3 tablet PO DAILY RF: 0 valacyclovir 500 mg tablet 500 mg PO DAILY RF: 0 Date of admission: 11/02/21 18:15 Primary Care Provider: PHYSICIAN,PASSPORT APPLICATION EXAMINER Admitting Provider: Yani Lezama Attending physician on admission: Yani Lezama Condition: Stable
== END 2021-11-05 12:40 | disposition home or self-care (01) | DRG 788 ==
LOC: ANHOBPP 17:35 → ANHOB2 11-05 09:43 → ANHOBPP 11-08 09:39
PROVIDERS: Obstetrics & Gynecology; Admitting Provider Obstetrics & Gynecology; Visit Provider Obstetrics & Gynecology
PROC: 10D00Z1 Extraction of Products of Conception, Low, Open Approach (ICD-10-PCS; CPT 59514; principal; 2021-11-02 18:30)
DX: O36.8130 Decreased fetal movements, third trimester, not applicable or unspecified (principal); O36.5130 Maternal care for known or suspected placental insufficiency, third trimester, not applicable or unspecified; Z01.84 Encounter for antibody response examination; Z3A.34 34 weeks gestation of pregnancy; Z37.0 Single live birth
CPT/HCPCS: 36415; 76819; 80307; 85025; 86413; 86592; 86769; 86850; 86900; 86901; 88307; A9270; J0131; J0690; J1885; J2274; J2590; J7120

== ENCOUNTER 2022-12-05 05:14 | Emergency (ER) | payer OTHER, SELFPAY ==
[2022-12-05 05:19] VITALS: BP 135/83; PULSE 116; RESP 20; TEMP 36.9; O2SAT 100
--- NOTE | 2022-12-05 05:28 | ED.URI ---
HPI - URI/Sore Throat General Chief Complaint: Upper Respiratory Infection Stated Complaint: Don't feel good Time Seen by Provider: 12/05/22 05:20 Source: patient, RN notes reviewed and old records reviewed Mode of arrival: ambulatory Limitations: no limitations History of Present Illness HPI Narrative: This is a 26 year old female who presents for evaluation of sore throat. She states over 1 week ago she developed fever, congestion and cough. These symptoms resolved 3 days ago and she states she felt better. Last night she developed sore throat and swollen glands. She states her son had URI symptoms last week. she denies fever, chills, vomiting today. Her cough has resolved. She has not taken any medication for her symptoms. Related Data Home Medications Medication Instructions Recorded Confirmed citalopram 40 mg tablet 20 mg PO HS 11/02/21 11/03/21 vit 112-iron 3.33 3 tablet PO DAILY 11/02/21 11/02/21 mg-folate 0.33 [id number] chew tablet (Vitafol Gummies) valacyclovir 500 mg tablet 500 mg PO DAILY 11/03/21 11/03/21 Allergies Allergy/AdvReac Type Severity Reaction Status Date / Time latex Allergy Mild Rash Verified 12/05/22 05:25 nickel Allergy Mild rash Verified 12/05/22 05:25 Review of Systems Constitutional: Constitutional: Reports fever(s) and Denies weakness ENT: Reports nasal congestion and Reports sore throat Cardiovascular: Cardiovascular: Denies syncope, Denies rapid heart rate, Denies irregular heart rhythm, Denies leg edema and Denies dyspnea Respiratory: Respiratory: Denies chest congestion, Reports cough, Denies hemoptysis, Denies excessive phlegm production and Denies dyspnea Gastrointestinal: Gastrointestinal: Denies abdominal pain, Denies hematochezia, Denies diarrhea, Reports nausea and Denies vomiting Genitourinary: Genitourinary: Denies hematuria and Denies dysuria Musculoskeletal: Musculoskeletal: Denies joint swelling, Denies loss of height and Denies muscle weakness Neurologic: Denies syncope, Denies focal weakness and Denies weakness PMFSH Past Medical History Medical History (normal spontaneous vaginal delivery) x 2 Obesity Family History Family History (Updated 12/30/21 @ 18:14 by Karen Hedrick RN) Other No pertinent family history Social History Social History Smoking status: Never smoker Second hand tobacco smoke exposure: No Substance use: never Spiritual care concerns: No Exam Const: General: no acute distress and alert Nutritional Appearance: well nourished Orientation/consciousness: patient oriented x3 Limitations: no limitations HENMT: Head: normal to inspection Face and sinus: normal facial exam and face symmetric Mouth: Yes lip normal, Yes tongue normal, Yes moist mucous membranes, No audible dysphonia and No drooling Throat: uvula midline and posterior oropharynx abnormal erythema and exudates Eyes: EOM: EOMs intact bilaterally Neck: Neck: normal visual inspection and no lymphadenopathy Chest: Chest palpation & inspection: normal inspection of the chest Resp: Effort & Inspection: normal respiratory effort Auscultation: clear to auscultation bilaterally Cardio: Rate: regular rate Rhythm: regular rhythm Heart sounds: no murmurs Neuro: General: patient oriented x3, moves all extremities and CN's II-XI intact bilaterally Cranial nerves: Yes Nystagmus not present Extrem: General: normal to inspection Psych: Mental Status: mental status grossly normal Affect: normal affect Attitude: cooperative Course Course Emergency Course: Patient presented with URI symptoms that improved and now she sore throat. She was tested for covid, flu, rsv and strep. THose were negative. I considered mono. She did have erythematous tonsils, no significant swelling , uvula is midline. Given antibiotics given sy
[2022-12-05] MEDS: IBUPROFEN 600 MG TABLET PO (05:45)
[2022-12-05 06:06] LABS: Strep Group A RT-PCR NOT DETECTED (Negative)
[2022-12-05 06:17] LABS: Influenza A QL RT-PCR Negative (Negative); Influenza B QL RT-PCR Negative (Negative); RSV RNA, RT-PCR Negative (Negative); SARS-CoV-2 RNA PCR Negative
[2022-12-05 06:36] VITALS: BP 136/71; PULSE 98; RESP 16; O2SAT 98
== END 2022-12-05 06:37 | disposition home or self-care (01) ==
PROVIDERS: Emergency Provider General Practice; PCP Emergency Medicine
DX: J02.9 Acute pharyngitis, unspecified (principal); Z20.822 Contact with and (suspected) exposure to COVID-19
CPT/HCPCS: 87637; 87651; 99283; A9270

== ENCOUNTER 2023-08-21 04:10 | Emergency (ER) | payer OTHER, BC, SELFPAY ==
[2023-08-21 04:13] VITALS: BP 119/77; PULSE 102; RESP 18; TEMP 37.3; O2SAT 98
[2023-08-21 04:33] VITALS: BP 126/78; PULSE 130; RESP 15; TEMP 36.9; O2SAT 100; O2SAT 97
[2023-08-21 05:06] LABS: Strep Group A RT-PCR NOT DETECTED (Negative)
[2023-08-21 05:16] LABS: Influenza A QL RT-PCR Negative (Negative); Influenza B QL RT-PCR Negative (Negative); RSV RNA, RT-PCR Negative (Negative); SARS-CoV-2 RNA PCR Negative (Negative)
[2023-08-21 05:37] VITALS: BP 132/89; PULSE 119; RESP 15; O2SAT 97
[2023-08-21] MEDS: DEXAMETHASONE 2 MG TABLET 10 MG PO (05:57)
[2023-08-21] MEDS: IBUPROFEN 600 MG TABLET PO (05:58)
[2023-08-21] MEDS: ACETAMINOPHEN 500 MG TABLET 1000 MG PO (05:58)
--- NOTE | 2023-08-21 06:12 | ED.GENADULT ---
HPI - General Adult General Chief complaint: Upper Respiratory Infection Stated complaint: upper resp infection Time Seen by Provider: 08/21/23 05:21 Source: patient History of Present Illness HPI narrative: 27 yo female presents with upper respiratory symptoms. She has been having nasal congestion, headache, and a sore throat that began yesterday. Denies CP, SOB. She had a borderline fever yesterday/ before going to bed, 100.0F. She states it hurts to swallow. She initially had a hoarse voice starting Saturday but that was her only symptom initially. Denies Hx of PNA. Approximately 1 month ago she developed a cough. She took a course of steroids which helped but she will note she occasionally coughs up green sputum. She was diagnosed with bronchitis in July. No allergies to Abx. Related Data Home Medications Medication Instructions Recorded Confirmed citalopram 40 mg tablet 20 mg PO HS 11/02/21 11/03/21 vit 112-iron 3.33 3 tablet PO DAILY 11/02/21 11/02/21 mg-folate 0.33 [id number] chew tablet (Vitafol Gummies) valacyclovir 500 mg tablet 500 mg PO DAILY 11/03/21 11/03/21 Allergies Allergy/AdvReac Type Severity Reaction Status Date / Time latex Allergy Mild Rash Verified 12/05/22 05:25 nickel Allergy Mild rash Verified 12/05/22 05:25 PMFSH Past Medical History Medical History (normal spontaneous vaginal delivery) x 2 Obesity Family History Family History (Updated 11/02/21 @ 18:14 by Karen Hedrick RN) Other No pertinent family history Social History Social History Smoking status: Never smoker Second hand tobacco smoke exposure: No Substance use: never Spiritual care concerns: No Exam Const: Nutritional Appearance: well nourished Limitations: no limitations Other: appears uncomfortable, tired HENMT: Head: normal to inspection Ears: TM's normal bilaterally Mouth: Yes Normal oral and palatal mucosa present Other: Posterior oropharynx with mild erythema. There is tonsillar swelling bilaterally, but not ary kissing of the tonsils. Uvula midline. No exudate on tonsils. Eyes: Conjunctivae: conjunctivae normal Neck: Neck: normal visual inspection Other: Lymphadenopathy. Resp: Effort & Inspection: normal respiratory effort, not labored, no retractions, not tachypneic and no use of accessory muscles Auscultation: clear to auscultation bilaterally (throughout anterior and posterior reynoso; no areas of consolidation), no crackles, no rales, no rhonchi and no wheezes Cardio: Rate: tachycardic Skin: General skin exam: normal color Neuro: General: patient oriented x3 Speech: normal speech Psych: Mental Status: mental status grossly normal Affect: normal affect Attitude: cooperative Course Vital Signs Vital signs: Vital Signs Temperature 99.1 F 08/21/23 04:13 Pulse Rate 102 H 08/21/23 04:13 Respiratory Rate 18 08/21/23 04:13 Blood Pressure 119/77 08/21/23 04:13 Pulse Oximetry 98 08/21/23 04:13 Oxygen Delivery Room Air 08/21/23 04:13 Temperature 98.4 F 08/21/23 04:33 Pulse Rate 120 H 08/21/23 06:21 Respiratory Rate 15 08/21/23 06:21 Blood Pressure 114/71 08/21/23 06:21 Pulse Oximetry 97 08/21/23 06:21 Oxygen Delivery Room Air 08/21/23 04:33 Medical Decision Making MDM Narrative Medical decision making narrative: Patient initially tachycardic to 130. I suspect patient has upper respiratory infection that is likely viral in nature and that tonsillar swelling is reactionary. Nevertheless, Centor Score 2 (11-17% probabilty Strep) for cervical LAD and temp thus will obtain rapid Strep testing. She is given a one time dose of 0.6mg/kg PO (max 10mg) dexamethasone as this has been shown to decrease the time to pain relief. Will also give acetaminophen, ibuprofen, and PO challeng
[2023-08-21 06:21] VITALS: BP 114/71; PULSE 120; RESP 15; O2SAT 97
== END 2023-08-21 06:22 | disposition home or self-care (01) ==
PROVIDERS: Emergency Provider Student in an Organized Health Care Education/Training Program
DX: B34.9 Viral infection, unspecified (principal); J02.9 Acute pharyngitis, unspecified; Z20.822 Contact with and (suspected) exposure to COVID-19
CPT/HCPCS: 87637; 87651; 99283; A9270; J8540

== ENCOUNTER 2024-07-17 21:57 | Emergency (ER) | payer BC, SELFPAY ==
[2024-07-17 21:58] VITALS: BP 135/74; PULSE 60; RESP 16; TEMP 36.7; O2SAT 100
[2024-07-17 22:05] VITALS: O2SAT 100
[2024-07-17 22:06] VITALS: BP 125/79; PULSE 62; RESP 16; O2SAT 100
[2024-07-17] MEDS: AMOXICILLIN 500 MG CAPSULE PO (22:48)
[2024-07-17] MEDS: LIDOCAINE HCL 2% VISC SOLN 15 ML UDC PO (22:48)
--- NOTE | 2024-07-17 22:49 | ED.DENTAL ---
HPI - Dental/Oral General Chief complaint: Dental/Oral Stated complaint: right jaw pain, week old Time Seen by Provider: 07/17/24 22:11 History of Present Illness HPI Narrative: Patient presents with right upper jaw/tooth pain, she has a molar that needs to be filled to the right top, is scheduled to see her dentist in 2 weeks, however the pain has been increasing over the last few days, she has been taking ibuprofen and Tylenol But still having pain Related Data Home Medications Medication Instructions Recorded Confirmed citalopram 40 mg tablet 20 mg PO HS 11/02/21 11/03/21 vit 112-iron 3.33 3 tablet PO DAILY 11/02/21 11/02/21 mg-folate 0.33 [id number]-jav chew tablet (Vitafol Gummies) valacyclovir 500 mg tablet 500 mg PO DAILY 11/03/21 11/03/21 Allergies Allergy/AdvReac Type Severity Reaction Status Date / Time latex Allergy Mild Rash Verified 07/17/24 22:02 nickel Allergy Mild rash Verified 07/17/24 22:02 Review of Systems Review of Systems: All systems reviewed & are unremarkable except as noted in HPI and below PMFSH Past Medical History Medical History (normal spontaneous vaginal delivery) x 2 Obesity Family History Family History (Updated 11/02/21 @ 18:14 by Karen Hedrick RN) Other No pertinent family history Social History Social History Smoking status: Never smoker Second hand tobacco smoke exposure: No Substance use: never Spiritual care concerns: No Exam Narrative: EXAMINATION OF ORGAN SYSTEMS/BODY AREAS: Constitutional: Vital signs per nursing GENERAL:[No acute distress, non-toxic appearing.] HEAD: Normal with no signs of head trauma. EYES: EOMI, conjunctiva normal ENT: some tenderness to the right upper molar LUNGS: Nonlabored breathing. HEART: [Regular rate and rhythm] ABD: no distension EXT: Normal range of motion SKIN: [No rashes or lesions.] NEURO: [Alert and oriented x 3. No gross focal sensory or strength deficits.] PSYCH: Normal affect Course Vital Signs Vital signs: Vital Signs Temperature 98.0 F 07/17/24 21:58 Pulse Rate 60 07/17/24 21:58 Respiratory Rate 16 07/17/24 21:58 Blood Pressure 135/74 07/17/24 21:58 Pulse Oximetry 100 07/17/24 21:58 Temperature 98.0 F 07/17/24 22:51 Pulse Rate 67 07/17/24 22:51 Respiratory Rate 16 07/17/24 22:51 Blood Pressure 112/75 07/17/24 22:51 Pulse Oximetry 100 07/17/24 22:51 MDM - Dental/Oral MDM Narrative Medical decision making narrative: ED COURSE AND MEDICAL DECISION MAKING: Patient with worsening dental pain and dental decay. has some tenderness and dental beverly right upper molar. No palpable abscess. No trismus. No systemic signs or symptoms. Analgesics are administered. Follow-up instructions given for dental/oral surgery clinics. Patient was given return precautions and discharged home in stable condition. Discharge Plan Discharge Clinical Impression: Toothache Patient Disposition: Home, Self-Care Condition: Stable Instructions: Antibiotic Form, Toothache (ED) Additional Instructions: please follow-up with her dentist in take antibiotics as prescribed, come back to the ER if your symptoms worsen. Prescriptions: New amoxicillin 500 mg capsule 500 mg PO Q8H 7 Days Qty: 21 0RF benzocaine 10 % gel 1 applic mucous membrane TID PRN (Reason: mouth irritation) Qty: 7 0RF No Action citalopram 40 mg tablet 20 mg PO HS Vitafol Gummies 3.33 mg iron- 0.33 mg tablet,chewable 3 tablet PO DAILY valacyclovir 500 mg tablet 500 mg PO DAILY ibuprofen 600 mg Tablet 600 mg PO Q6H PRN (Reason: Cramping) Qty: 20 0RF hydrocodone-acetaminophen 5-325 mg tablet 1 tablet PO Q4H PRN (Reason: pain) Qty: 20 0RF ibuprofen 600 mg tablet 600 mg PO Q6H PRN (Reason: fever or pain)
[2024-07-17 22:51] VITALS: BP 112/75; PULSE 67; RESP 16; TEMP 36.7; O2SAT 100
== END 2024-07-17 22:53 | disposition home or self-care (01) ==
PROVIDERS: Emergency Provider Emergency Medicine
DX: K08.89 Other specified disorders of teeth and supporting structures (principal); K02.9 Dental caries, unspecified; E66.9 Obesity, unspecified; Z68.34 Body mass index [BMI] 34.0-34.9, adult; Z79.899 Other long term (current) drug therapy
CPT/HCPCS: 99283; A9270

== ENCOUNTER 2025-10-18 08:07 | Emergency (ER) | payer BC, SELFPAY ==
[2025-10-18 08:22] VITALS: BP 118/66; PULSE 78; RESP 20; TEMP 37.2; O2SAT 99
--- NOTE | 2025-10-18 08:41 | ED.URI ---
HPI - URI/Sore Throat General Chief Complaint: Upper Respiratory Infection Stated Complaint: SORE THROAT Time Seen by Provider: 10/18/25 08:20 Source: patient and RN notes reviewed Mode of arrival: ambulatory Limitations: no limitations History of Present Illness HPI Narrative: 29-year-old female presents [facility] complaining of sore throat that started 2 days ago. Patient last week 1 of her children had strep. Patient denies any other upper respiratory symptoms. Patient has any fevers, body aches, chills, nausea vomiting, diarrhea, chest pain, difficulty breathing, or any other symptoms. Patient has been taking Tylenol and Motrin to help with symptoms. Patient has any significant past medical history. Related Data Allergies Allergy/AdvReac Type Severity Reaction Status Date / Time latex Allergy Mild Rash Verified 10/18/25 08:23 nickel Allergy Mild rash Verified 10/18/25 08:23 Review of Systems Review of Systems: CONSTITUTIONAL: Denies fever, chills, or sweats. EYES: Denies visual changes, redness, or discharge. ENT: Denies rhinorrhea, congestion, or otalgia. Positive for sore throat CARDIOVASCULAR: Denies chest pain, palpitations, or edema. RESPIRATORY: Denies cough or dyspnea. GASTROINTESTINAL: Denies abdominal pain, nausea, vomiting, or diarrhea. GENITOURINARY: Denies dysuria or hematuria. SKIN: Denies rash or itching. MUSCULOSKELETAL: Denies back pain, joint pain, or myalgia. NEUROLOGIC: Denies headache, numbness, or weakness. PSYCHIATRIC: Denies anxiety or depression. All other systems reviewed are negative, except as documented in HPI. [facility] Past Medical History Medical History (normal spontaneous vaginal delivery) x 2 Obesity Family History Family History Other No pertinent family history Social History Social History Smoking status: Never smoker Second hand tobacco smoke exposure: No Substance use: never Spiritual care concerns: No Comments At the time of my signature, I reviewed and agree with the nursing past medical, surgical, social, and family history. There is no relevant family history pertinent to the patient complaint. Exam Narrative: GENERAL: This is a well-nourished, well-developed adult, in no apparent distress. They are non ill-appearing, nontoxic appearing. HEAD: normocephalic, atraumatic. EYES: Sclera clear/white. Conjunctiva normal. Vision is grossly intact. Extraocular movements intact EARS: External ears normal, auditory canals clear and without drainage, TMs normal without perforation. Hearing grossly intact. NOSE: External nose normal with no obvious nasal discharge, nasal turbinates without redness, no rhinorrhea. THROAT: Mucous membranes moist, posterior pharynx erythematous. No exudate. Uvula midline. NECK: Neck supple, mild tender cervical lymphadenopathy, no masses or thyromegaly. CARDIOVASCULAR: Regular rate and rhythm without murmurs, gallops, or rubs. RESPIRATORY: Clear to auscultation. Breath sounds equal bilaterally. No wheezes, rales, or rhonchi. SKIN: warm, Dry, intact with no suspicious lesions or rash, good texture and turgor. NEURO: awake, alert, and oriented to person, place and time. There were no obvious focal neurologic abnormalities. EXTREMITIES: No joint tenderness, effusion, or edema noted. BACK: Nontender without deformity. Course Course Level of Care: Express Care Visit Vital Signs Vital signs: Vital Signs Temperature 98.9 F 10/18/25 08:22 Pulse Rate 78 10/18/25 08:22 Respiratory Rate 20 10/18/25 08:22 Blood Pressure 118/66 10/18/25 08:22 Pulse Oximetry 99 10/18/25 08:22 Oxygen Delivery Room Air 10/18/25 08:22 Temperature 98.9 F 10/18/25 08:22 Pulse Rate 78 10/18/25 08:22 Respiratory Rate 20 10/18/25 08:22 Blood Pressure 118/66 10/18/25 08:22 Pulse Oximetry 99 10/18/25 08:22 Oxygen Delivery Room Air 10/18/25 08:22 [facility] Narrative Medical decision making narrative: Rapid strep negative. A throat culture is pending. Will give her dose of dexamethasone for sore throat. Symptoms likely viral in etiology Discussed physical exam findings. Advised supportive measures and signs/symptoms to go to the ER. Pt is appropriate for outpt treatment and f/u. Differential Diagnosis Differential Diagnosis: Differential diagnostic considerations for upper respiratory infection include upper respiratory infection, croup, otitis media, sinusitis, viral infection, bronchitis, influenza, pharyngitis, strep, uvulitis. Lab Data MDM Lab Attestation statement: I personally reviewed the patient's lab results. Critical Care Time Critical Care Time Critical Care Time: No Discharge Plan Discharge Clinical Impression: Pharyngitis Qualifiers: Pharyngitis/tonsillitis etiology: unspecified etiology Qualified Code(s): J02.9 - Acute pharyngitis, unspecified Patient Disposition: Home Condition: Stable Instructions: Antibiotic Form, Pharyngitis (ED) Additional Instructions: Your rapid strep swab was negative today at [facility]. You will be notified in a few days if the culture comes back positive for strep, and appropriate antibiotics will be called in for you at that time. Your symptoms are likely due to a viral illness, which is not treated with antibiotics. Viral symptoms can be present for up to 10-14 days. Take Tylenol or ibuprofen as needed for fever or pain. Follow instructions on the bottle. Take dexamethasone as directed. It is a 1 time dose. Rest and stay hydrated. Follow up with your PCP in 3-5 days if symptoms are not improving. Go to the ER immediately if you developed chest pain, vomiting, difficulty breathing or swallowing, or any serious concerns. Patient Language: Occitan Prescriptions: New dexamethasone 2 mg tablet 10 mg PO ONCE 1 Days Qty: 5 0RF Follow-up/Referrals: PHYSICIAN,PERSONAL INJURY ATTORNEY [Primary Care Provider, Internal Medicine] Time of Disposition: 08:36
== END 2025-10-18 08:41 | disposition home or self-care (01) ==
DX: J02.9 Acute pharyngitis, unspecified (principal); E66.9 Obesity, unspecified; Z68.22 Body mass index [BMI] 22.0-22.9, adult
CPT/HCPCS: 87081; 87880; 99213; G0463